=== PATIENT | female | born 1985 | race Two or more races ===

== ENCOUNTER 2023-09-11 17:48 | Emergency (ER) | payer MEDICAID, OTHER, SELFPAY ==
--- NOTE | ~2023-09-11 | CT_ITS ---
EXAMINATION: CT ABDOMEN AND PELVIS WITH CONTRAST CLINICAL INFORMATION: Right lower quadrant pain; urinary symptoms. COMPARISON: None available. TECHNIQUE: Multidetector volumetric images were obtained from the superior aspect of the liver through the pubic symphysis following administration 85 mL of Omnipaque 350 intravenous contrast. Sagittal and coronal reformatted images were obtained on the technologist's workstation. Oral contrast: No This CT examination was performed using dose optimization techniques as appropriate, variously including the following: *Automated exposure control *Adjustment of mA and/or kV according to patient size (this includes techniques or standardized protocols for targeted exams where dose is matched to indication/reason for exam; i.e. extremities or head) *Use of iterative reconstruction technique DLP: 471 mGy-cm FINDINGS: LUNG BASES: The visualized lung bases are unremarkable. There is bibasilar dependent hypoaeration. LIVER, GALLBLADDER, AND BILIARY TREE: The liver is normal in size, shape and generally diminished in attenuation. No focal hepatic lesion or biliary ductal dilatation is present. The gallbladder is unremarkable with no evidence of radiopaque gallstones, gallbladder wall thickening, or obvious pericholecystic inflammatory changes. PANCREAS: Unremarkable. SPLEEN: Unremarkable. ADRENAL GLANDS: Unremarkable. KIDNEYS AND URETERS: The kidneys are normal in size, shape, and attenuation. No hydronephrosis, hydroureter, or calculi seen. No perinephric stranding. BLADDER: Unremarkable. GASTROINTESTINAL TRACT: The small and large bowel are unremarkable. The appendix is unremarkable. ABDOMINAL WALL: No significant hernia is appreciated. LYMPH NODES: There are a few shotty, nonpathologically enlarged periappendiceal lymph nodes. There is no sizable lymphadenopathy. VASCULAR: Unremarkable. PELVIC VISCERA: Nabothian cysts are seen within the cervix. Endometrial stripe thickness is upper normal at approximately 1.5 cm (8:47). The left ovary contains a 2.2 cm benign, simple cyst. OSSEOUS STRUCTURES: There is a marked T9 anterior wedge compression fracture, with slight gibbus deformity. There is anterior plate arthropathy at T8-T9 and T9-T10. No aggressive osseous lesion is seen. CT/CT abdomen pelvis w IV con IMPRESSION: 1. No urinary mass, calculus or obstruction is seen. 2. There is no bowel obstruction, free intraperitoneal air or abscess. No appendicitis or diverticulitis is seen. 3. Nabothian cysts are seen within the cervix. Endovaginal stripe thickness is upper normal and can be more fully evaluated with dedicated pelvic ultrasound, if clinically warranted. 4. There is a marked T9 anterior wedge compression fracture. Fleischner guidelines were followed.
[2023-09-11 18:06] VITALS: BP 115/69; PULSE 79; RESP 18; TEMP 36.5; O2SAT 97; BMI 30.1
--- NOTE | 2023-09-11 18:11 | ED.GENADULT ---
HPI - General Adult General Chief complaint: Vaginal Bleeding Stated complaint: bleeding when using the bathroom Time Seen by Provider: 09/11/23 21:26 History of Present Illness ED Provider: Jelani MILLER narrative: The patient is a 37-year-old female who says that she has had left lower abdominal or pelvic pain for about 5 or 6 days. She says that the pain seems to wrap around to her lower flank on the left or her waist on the left. She has also had urinary discomfort and urinary frequency. Yesterday she also had vaginal bleeding although this stopped today. She says she has a normal. About a week ago. She has a history of a tubal ligation. The patient says she has been taking ibuprofen for pain. Related Data Previous Rx's ?Medication ?Instructions ?Recorded cefuroxime axetil 250 mg tablet 250 mg PO BID #10 tabs 09/12/23 ibuprofen 600 mg tablet 600 mg PO Q6H PRN pain #14 tabs 09/12/23 Allergies Allergy/AdvReac Type Severity Reaction Status Date / Time No Known Allergies Allergy Verified 09/11/23 18:08 Review of Systems Review of Systems: Yes all other systems are reviewed and are negative [facility] Social History Social History Advance Directives: No Advance Directives Information Provided: No Do you have a plan to hurt others: No Plan Patient : No Physical Exam ED Vital Signs: Vital Signs - 24 hr 09/11/23 18:06 09/11/23 20:26 09/12/23 00:15 Temperature 97.7 F 98.0 F 97.6 F Pulse Rate 79 67 65 Respiratory Rate 18 16 16 Blood Pressure 115/69 113/59 L 104/60 Pulse Oximetry 97 99 99 Oxygen Delivery Method Room Air Room Air Room Air 09/12/23 00:39 Temperature 97.6 F Pulse Rate 65 Respiratory Rate 16 Blood Pressure 104/60 Pulse Oximetry 99 Oxygen Delivery Method Room Air BMI result Body Mass Index 30.1 Const Other: The patient is awake and alert. She is pleasant and cooperative. She does not appear in obvious overt distress. HENMT Other: Face is symmetrical. Mucous membranes moist. Eyes Other: Pupils are round equal, conjunctivae clear Neck Other: Moving her neck easily Resp Effort & Inspection: normal respiratory effort Auscultation: clear to auscultation bilaterally Cardio Rate: regular rate Rhythm: regular rhythm Heart sounds: S1 normal heart sound present and S2 normal heart sound present GI Other: There is some left lower quadrant tenderness without definite rebound or guarding. The abdomen is otherwise soft and nontender. Back/Spine/Pelvis Other: No marked left-sided CVA percussion tenderness. Skin Other: The skin is dry and unremarkable Neuro Other: The patient is awake and alert with a normal mental status. Cranial nerves are grossly intact. She moves her extremities normally and seems grossly neurologically intact. Extrem Other: No peripheral edema. Course Course Course Narrative: RME performed by Michelle Perez PA-C. Patient is a 37 year old assigned female at presenting to the emergency department with vaginal bleeding. Detailed physical exam and review of systems are deferred to the claim clinician. Labs ordered. Patient placed back in the waiting room pending room availability and results. Medications Administered Discontinued Medications Generic Name Dose Route Start Last Admin Trade Name Freq PRN Reason Stop Dose Admin Cefuroxime Axetil 500 mg 09/12/23 00:04 09/12/23 00:34 Cefuroxime Axetil 500 Mg Tablet PO 09/12/23 00:05 500 mg ONCE ONE Administration Sodium Chloride 1,000 mls @ 999 mls/hr 09/11/23 21:45 09/11/23 23:10 Ns IV 09/11/23 22:45 Infused .Q1H1M DANIEL Infusion Iohexol 85 ml 09/11/23 22:15 09/11/23 22:15 Iohexol 350 Mg/Ml 100 Ml Infus..Btl IV 09/11/23 22:16 85 ml ONCE ONE Administration Ketorolac Tromethamine 15 mg 09/11/23 21:43 09/11/23 21:59 Ketorolac Tromethamine 15 Mg/Ml Vial IVPUSH 09/11/23 21:44 15 mg ONCE ONE Administration Medical Decision Making Medical Decision Making MDM Narrative: The patient is a 37-year-old female who presents with a complaint of several days of left lower quadrant or pelvic abdominal pain that she says she also feels somewhat in her lower back near her waist. She also reports urinary discomfort and frequency. She also says that yesterday she had vaginal bleeding that was not her typical menstrual bleeding. She had had a regular period the week before. The patient says that the abnormal vaginal bleeding stopped on its own and she is not having any current I have ongoing bleeding. Clinically the patient does not look particularly uncomfortable. She certainly does not seem to be in agony. Patient's urinalysis is consistent with a urinary tract infection although she does have significant blood on her urinalysis.. Other labs are unremarkable. A CT scan of the abdomen pelvis with IV contrast was done to look for the possibility of pyelonephritis or a significant ovarian problem. There was no evidence of a kidney stone on the CT scan. There is a 2 cm simple ovarian cyst. There is no description of anything to suggest torsion on the CT scan. Ultimately I felt the patient should be treated for UTI but did not feel there was any definite indication for additional testing or management in the emergency room. The patient goes to the [facility] in [place] associated with the [facility] for primary care. She had a tubal ligation through [facility] Gynecology several years ago. She says that she would prefer to follow up with Gynecology here at [facility]. She was given the name and number for Dr. Del Castillo. Lab Data 09/11/23 18:20 09/11/23 18:20 Labs: Lab Results 09/11/23 09/11/23 Range/Units 18:20 18:23 WBC 9.1 (4.8-10.8) X10*3/uL RBC 4.25 (4.20-5.50) X10*6/uL Hgb 13.2 (12.0-16.0) g/dl Hct 37.2 (37.0-47.0) % MCV 87.5 (80.0-98.0) fL MCH 31.1 (27.0-33.0) pg MCHC 35.5 H (31.0-35.0) g/dl RDW 12.0 (11.0-16.0) % Plt Count 279 (160-400) X10*3/uL MPV 9.9 (9.4-12.3) fL Immature Gran % (Auto) 0.5 H (0.0-0.4) % Neut % (Auto) 57.3 (45-73) % Lymph % (Auto) 31.9 (20-40) % [place] % (Auto) 7.1 (2-11) % Eos % (Auto) 2.2 (0-4) % Baso % (Auto) 1.0 (0-2) % Lymph # (Auto) 2.9 (1.2-4.9) X10*3/uL [place] # (Auto) 0.7 (0.1-1.2) X10*3/uL Eos # (Auto) 0.2 (0.0-0.4) X10*3/uL Baso # (Auto) 0.1 (0.0-0.2) X10*3/uL Abs Immat Gran (auto) 0.05 H (0.00-0.03) X10*3/uL Absolute Neuts (auto) 5.2 (2.0-8.3) x10*3/uL Absolute Nucleated RBC 0.000 (0.0-0.012) X10*3/uL Nucleated RBC % (auto) 0.0 (0.0-0.2) /100WBC Sodium 139 (135-145) mmol/L Potassium 3.3 (3.3-5.1) mmol/L Chloride 106 (96-108) mmol/L Carbon Dioxide 23 (22-29) mmol/L Anion Gap 13 (12-20) BUN 12 (9-16) mg/dL Creatinine 0.87 (0.5-1.4) mg/dL Estim Creat Clear Calc 67.6 Estimated GFR > 60 Random Glucose 135 H (60-115) mg/dL Calcium 9.4 (8.4-10.2) mg/dL Magnesium 2.2 (1.6-2.6) mg/dL Total Bilirubin 0.4 (0.0-1.0) mg/dL AST 27 (5-31) U/L ALT 35 H (0-31) U/L Alkaline Phosphatase 71 (39-117) U/L C-Reactive Protein 0.55 H (< or = 0.50) mg/dL Total Protein 7.3 (6.5-8.0) g/dL Albumin 4.0 (3.5-5.0) g/dL Urine Color Yellow Urine Appearance Clear Urine pH 5.5 (5.0-9.0) Ur Specific [place] 1.020 (1.005-1.025) Urine Protein Negative (Neg-Trace) mg/dL Urine Glucose (UA) Negative (Negative) mg/dL Urine Ketones Trace (Negative) mg/dL Urine Blood Large (3+) H (Negative) Urine Nitrite Negative (Negative) Ur Leukocyte Esterase Small (1+) H (Negative) Urine RBC >20 H (0-2) /HPF Urine WBC 11-20 H (0-5) /HPF Ur Squamous Epith Cells 6-10 (0-2) /HPF Urine Bacteria None Seen (None Seen) Hyaline Casts 0-2 (0-2) /LPF Urine Test NEGATIVE (NEGATIVE) Discharge Plan Discharge Clinical Impression: Urinary tract infection, Vaginal bleeding, Left lower quadrant abdominal pain, Left ovarian cyst Patient Disposition: Home, Self-Care Additional Instructions: I believe you have a urine infection. You have been started on an antibiotic, cefuroxime. Please take this antibiotic 2 times a day until done. I think that you should see a chief payroll clerk to discuss your vaginal bleeding and your concerns about your previous tubal ligation. Please contact Dr. Del Castillo's office on Wednesday. Please also plan on following up with your regular doctor at the [facility] in [place]. You may use ibuprofen and acetaminophen as needed for discomfort. A prescription for ibuprofen was also sent to your pharmacy. Return to the emergency room if significantly worse. Prescriptions: New cefuroxime axetil 250 mg tablet 250 mg PO BID Qty: 10 0RF ibuprofen 600 mg tablet 600 mg PO Q6H PRN (Reason: pain) Qty: 14 0RF Referrals: [facility] [Provider Group] (UTI, vaginal bleeding) Del Del Castillo MD [Physician] - (vaginal bleeding, left ovarian cyst, UTI) Interventions: ED Discharge Assessment Last Done: 09/12/23 00:39 Discharge Date/Time: 09/12/23 00:40 Print Language: Sao Tomean
[2023-09-11 18:24] LABS: Basophils Absolute Auto 0.1 X10*3/uL (0.0-0.2); Eosinophils Absolute Auto 0.2 X10*3/uL (0.0-0.4); Eosinophils Percent Auto 2.2 % (0-4); Hematocrit 37.2 % (37.0-47.0); Hemoglobin 13.2 g/dl (12.0-16.0); Imm Gran Abs Auto 0.05 X10*3/uL (0.00-0.03); Imm Gran Pct Auto 0.5 % (0.0-0.4); Lymphocytes Absolute Auto 2.9 X10*3/uL (1.2-4.9); Lymphocytes Percent Auto 31.9 % (20-40); MANUAL DIFF FLAG NO; Mean Corpuscular HGB Conc 35.5 g/dl (31.0-35.0); Mean Corpuscular Hemoglobin 31.1 pg (27.0-33.0); Mean Corpuscular Volume 87.5 fL (80.0-98.0); Mean Platelet Volume 9.9 fL (9.4-12.3); Monocytes Absolute Auto 0.7 X10*3/uL (0.1-1.2); Monocytes Percent Auto 7.1 % (2-11); Neutrophils Absolute Auto 5.2 x10*3/uL (2.0-8.3); Neutrophils Percent Auto 57.3 % (45-73); Platelet Count 279 X10*3/uL (160-400); Red Blood Count 4.25 X10*6/uL (4.20-5.50); White Blood Count 9.1 X10*3/uL (4.8-10.8)
[2023-09-11 18:34] LABS: Appearance Urine Clear; Color Urine Yellow; Glucose Urine UA Negative (Negative); Leukocyte Esterase Urine Small (1+) (Negative); Nitrite Urine Negative (Negative); PH 5.5 (5.0-9.0); UMIC TRIGGER UACC YES; Urine Blood Large (3+) (Negative); Urine Ketones Trace mg/dL (Negative); Urine Protein Negative (Neg-Trace)
[2023-09-11 18:37] LABS: Alanine Aminotransferase 35 U/L (0-31); Alkaline Phosphatase 71 U/L (39-117); Anion Gap 13 (12-20); Aspartate Amino Transferase 27 U/L (5-31); Bilirubin Total 0.4 mg/dL (0.0-1.0); Blood Urea Nitrogen 12 mg/dL (9-16); Calcium 9.4 mg/dL (8.4-10.2); Carbon Dioxide 23 mmol/L (22-29); Chloride 106 mmol/L (96-108); Creatinine Clr Calc Pharmacy 67.6; Estimated Glomerular Filt Rate > 60; Glucose Random 135 mg/dL (60-115); Magnesium 2.2 mg/dL (1.6-2.6); Potassium 3.3 mmol/L (3.3-5.1); Sodium 139 mmol/L (135-145); Total Protein 7.3 g/dL (6.5-8.0)
[2023-09-11 18:39] LABS: Bacteria Urine None Seen (None Seen); Hyaline Casts Urine 0-2 /LPF (0-2); RBC Urine >20 /HPF (0-2); UACC Culture Trigger YES
--- OUTSIDE RECORDS SUMMARY | 2023-09-11 20:17 | XMS_ITS | Continuity of Care Document ---
Author Organization [facility] Address [address] [place] [address]- Care Team Providers Care Spindle Carver Name Role Phone Josette KYLE, Sophie Primary Care Physician [facility] [id number] Date(s): 11/13/22 - 12/13/22 [facility]/[place] [address]- Attending Physician: Ray Sawant Admitting Physician: AdmtrRay Referring Physician: Admtr, Ar8 Allergies, Adverse Reactions, Alerts No Known Allergies Immunizations Given and Recorded Vaccine Date Status Refusal Reason influenza virus vaccine, inactivated 11/15/19 Give n influenza virus vaccine, inactivated 12/13/18 Give n influenza virus vaccine, inactivated 11/19/17 Give n influenza virus vaccine, inactivated 12/23/16 Give n influenza virus vaccine, inactivated 04/16/15 Give n hepatitis B adult vaccine 03/17/18 Given hepatitis B adult vaccine 08/25/16 Given hepatitis B adult vaccine 05/14/15 Given tetanus/diphtheria/pertussis, acel(Tdap) 11/19/17 Given tetanus/diphtheria/pertussis, acel(Tdap) 04/16/15 Given Medications clotrimazole 1% topical cream 1 application, Topically, 2 times a day, in nauruan please continue for at least two weeks after the rash resolves, # 60 Gm, 2 Refills, Maintenance, 05/22/22 15:38:00 EDT, Cream, [facility], Partial fill upon patient request if t... Start Date: 05/22/22 Status: Ordered fluconazole 150 mg oral tablet 1 tablet = 150 mg, By Mouth, Once, For vaginal discharge and itching May repeat in 72 hrs if symptoms not resolved Azerbaijani, # 2 tablet, 0 Refills, Soft Stop, 09/11/21 16:06:00 EDT, Tablet, [facility], Partial fill upon patient r... Start Date: 09/11/21 Status: Ordered fluconazole 150 mg oral tablet 1 tablet = 150 mg, By Mouth, Once, # 1 tablet, 0 Refills, Soft Stop, 03/18/18 10:53:56 EST, Tablet,please label in nauruan Start Date: 03/18/18 Status: Ordered ibuprofen 600 mg oral tablet 600 mg, 1, tablet, By Mouth, 3 times a day, PRN, with food, # 30 tablet, Refills 0, Tot. Refills 0,Maintenance, back pain, 06/04/22 17:05:00 EDT, Route to Pharmacy Electronically, [facility], please print rx in nauruan, 150, cm, 0... Start Date: 06/04/22 Status: Ordered Multivitamins with Folic Acid 1 mg oral tablet 1 tablet, By Mouth, Daily, # 30 tablet, 11 Refills, Maintenance, 05/12/17 16:29:17 EDT, Tablet, 1 tablet By Mouth Daily Start Date: 05/12/17 Status: Ordered Multivitamins with Vitamin B Complex, Vitamin C, Minerals and L- Methylfolate oral capsule 1 capsule, By Mouth, Daily, SIG MALTESE, # 30 capsule, 3 Refills, Maintenance, 12/03/17 13:14:17 EDT, Capsule, 1 capsule By Mouth Daily,Instr:SIG MALTESE Start Date: 12/03/17 Status: Ordered Zoloft 50 mg oral tablet 1 tablet = 50 mg, By Mouth, Daily, la primera semana-jorge media tableta x 7 d., # 30 tablet, 4 Refills, Maintenance, 01/05/18 17:11:53 EST, Tablet, pls translate-half tablet/d x 7 d, then full tablet9(cut 4 tabs in half if possible) Start Date: 01/05/18 Stop Date: 06/04/18 Status: Ordered Problem List Condition Confirmation Course Effective Dates Status Health St atus Informant Delivery of third by section using transverse incision of lower segment of uterus Confirmed 12/23/17 Active History of bilateral tubal ligation Confirmed 12/23/17 Active History of section x 2 in [facility] Confirmed Active Azerbaijani speaking patient Confirmed Active Social History Social History Type Response Smoking Status Never (less than 100 in lifetime); Tobacco user in household: No entered on: 06/04/22 Sex Patient Care team information Care Team Personnel Name: Sophie Finch NP Position: [facility] PCO Associate Professional Member Role: PCP Address: Address: [address] [place] [address]- Care Team Related Persons Name: CÉSAR RUGGIERO Address: [address] Address: home [address] [place] [address] Name: KIRILL DALEY Address: home [address] [place] [address] Name: ANTHONY DALEY Address: [place] [address] Name: CRISTOPHER DALEY Address: [place] [address]
--- OUTSIDE RECORDS SUMMARY | 2023-09-11 20:17 | XMS_ITS | Continuity of Care Document ---
Author Organization [facility] Address [address] [place] [address]- Care Team Providers Care Manual Lathe Machinist Name Role Phone Glen LU, Simin Caraballo Primary Care Physician Encounter [facility] Date(s): 11/15/19 - 12/15/19 [facility]/[address] [address]- Attending Physician: AdmtrRay Admitting Physician: Admtr, Ar8 Referring Physician: Admtr, Ar8 Allergies, Adverse Reactions, Alerts Substance Reaction Severity Status NKA Active Immunizations Given and Recorded Vaccine Date Status [...] 11/19/17 Given tetanus/diphtheria/pertussis, acel(Tdap) 04/16/15 Given Medications fluconazole 150 mg oral tablet 1 tablet = 150 mg, By Mouth, Once, # 1 tablet, 0 Refills, Soft Stop, 03/18/18 10:53:56 EST, Tablet,please label in east timorese Start Date: 03/18/18 Status: Ordered ibuprofen 600 mg oral tablet 600 mg, 1, tablet, By Mouth, Every 6 hours, # 60 tablet, Refills 0, Tot. Refills 0, Maintenance, 12/23/17 17:53:29 EST, Print Requisition, please print rx in east timorese Start Date: 12/23/17 Status: Ordered Multivitamins with Folic Acid 1 mg oral tablet 1 tablet, By Mouth, Daily, # 30 tablet, 11 Refills, Maintenance, 05/12/17 16:29:17 EDT, Tablet, 1 tablet By Mouth Daily Start Date: 05/12/17 Status: Ordered Multivitamins with Vitamin B Complex, Vitamin C, Minerals and L- Methylfolate oral capsule 1 capsule, By Mouth, Daily, SIG ESTONIAN, # 30 capsule, 3 Refills, Maintenance, 12/03/17 13:14:17 EDT, Capsule, 1 capsule By Mouth Daily,Instr:SIG ESTONIAN Start Date: 12/03/17 Status: Ordered Zoloft 50 mg oral tablet 1 tablet = 50 mg, By Mouth, Daily, la primera semana-jorge media tableta x 7 d., # 30 tablet, 4 Refills, Maintenance, 01/05/18 17:11:53 EST, Tablet, pls translate-half tablet/d x 7 d, then full tablet9(cut 4 tabs in half if possible) Start Date: 01/05/18 Stop Date: 06/04/18 Status: Ordered Problem List Condition Effective Dates Status Health Status Inform ant Delivery of third by section using transverse incision of lower segment of uterus(Confirmed) 12/23/17 Active History of bilateral tubal ligation(Confirmed) 12/23/17 Active History of section x 2 in [facility](Confirmed) Active Sammarinese speaking patient(Confirmed) Active Social History Social History Type Response Smoking Status Never smoker entered on: 08/25/16 Sex
--- OUTSIDE RECORDS SUMMARY | 2023-09-11 20:17 | XMS_ITS | Continuity of Care Document ---
Author Organization [facility] Address Unknown Care Team Providers Care Shoe Packer Name Role Phone Sophie Finch NP Primary Care Physician Encounter [facility] Date(s): 08/25/21 - 09/24/21 [facility] Attending Physician: Ray Sawant Admitting Physician: Ray Sawant Referring Physician: Ray Sawant Allergies, Adverse Reactions, Alerts No Known Allergies [...] in 72 hrs if symptoms not resolved Iranian, # 2 tablet, 0 Refills, Soft Stop, 09/11/21 16:06:00 EDT, Tablet, [facility], Partial fill upon patient r... Start Date: 09/11/21 Status: Ordered fluconazole 150 mg oral tablet 1 tablet = 150 mg, By Mouth, Once, # 1 tablet, 0 Refills, Soft Stop, 03/18/18 10:53:56 EST, Tablet,please label in yoruba Start Date: 03/18/18 Status: Ordered ibuprofen 600 mg oral tablet 600 mg, 1, tablet, By Mouth, Every 6 hours, # 60 tablet, Refills 0, Tot. Refills 0, Maintenance, 12/23/17 17:53:29 EST, Print Requisition, please print rx in yoruba Start Date: 12/23/17 Status: Ordered Multivitamins with Folic Acid 1 mg oral tablet 1 tablet, By Mouth, Daily, # 30 tablet, 11 Refills, Maintenance, 05/12/17 16:29:17 EDT, Tablet, 1 tablet By Mouth Daily Start Date: 05/12/17 Status: Ordered Multivitamins with Vitamin B Complex, Vitamin C, Minerals and L- Methylfolate oral capsule 1 capsule, By Mouth, Daily, SIG CROATIAN, # 30 capsule, 3 Refills, Maintenance, 12/03/17 13:14:17 EDT, Capsule, 1 capsule By Mouth Daily,Instr:SIG CROATIAN Start Date: 12/03/17 Status: Ordered Zoloft 50 [...] Active History of section x 2 in [facility](Confirmed) Active Iranian speaking patient(Confirmed) Active Social History Social History Type Response Tobacco Use: 4 or less cigar ettes(less than 1/4 pack)/day in last 30 days. Tobacco user in household: No. Sex
--- OUTSIDE RECORDS SUMMARY | 2023-09-11 20:18 | XMS_ITS | Continuity of Care Document ---
Author Organization [facility] Address [address] [place] [address]- Care Team Providers Care Systems Eng Name Role Phone Josette KYLE, Sophie Primary Care Physician [phone] Encounter [facility] Date(s): 09/11/21 - 10/11/21 [facility]/[place] [address]- [place] Allergies, Adverse Reactions, Alerts No Known Allergies [...] in 72 hrs if symptoms not resolved Romanian, # 2 tablet, 0 Refills, Soft Stop, 09/11/21 16:06:00 EDT, Tablet, [facility], Partial fill upon patient r... Start Date: 09/11/21 Status: Ordered fluconazole 150 mg oral tablet 1 tablet = 150 mg, By Mouth, Once, # 1 tablet, 0 Refills, Soft Stop, 03/18/18 10:53:56 EST, Tablet,please label in mongolian Start Date: 03/18/18 Status: Ordered ibuprofen 600 mg oral tablet 600 mg, 1, tablet, By Mouth, Every 6 hours, # 60 tablet, Refills 0, Tot. Refills 0, Maintenance, 12/23/17 17:53:29 EST, Print Requisition, please print rx in mongolian Start Date: 12/23/17 Status: Ordered Multivitamins with Folic Acid 1 mg oral tablet 1 tablet, By Mouth, Daily, # 30 tablet, 11 Refills, Maintenance, 05/12/17 16:29:17 EDT, Tablet, 1 tablet By Mouth Daily Start Date: 05/12/17 Status: Ordered Multivitamins with Vitamin B Complex, Vitamin C, Minerals and L- Methylfolate oral capsule 1 capsule, By Mouth, Daily, SIG GREENLANDIC, # 30 capsule, 3 Refills, Maintenance, 12/03/17 13:14:17 EDT, Capsule, 1 capsule By Mouth Daily,Instr:SIG GREENLANDIC Start Date: 12/03/17 Status: Ordered Zoloft 50 [...] Active History of section x 2 in [facility](Confirmed) Active Romanian speaking patient(Confirmed) Active Social History Social History Type Response Tobacco Use: 4 or less cigar ettes(less than 1/4 pack)/day in last 30 days. Tobacco user in household: No. Sex Care Team Personnel Name: Sophie Finch NP Address: [address] [place] [address]
--- OUTSIDE RECORDS SUMMARY | 2023-09-11 20:18 | XMS_ITS | Continuity of Care Document ---
Author Organization [facility] Address [address] [place] [address]- Care Team Providers Care Kettle Chipper Name Role Phone Sophie Finch NP Primary Care Physician [phone] Encounter [facility] Date(s): 02/10/23 - 03/12/23 [facility]/[place] [address]- Attending Physician: Ray Sawant Admitting Physician: Ray Sawant Referring Physician: AdmtrRay Allergies, Adverse Reactions, Alerts No Known Allergies [...] application, Topically, 2 times a day, in scottish please continue for at least two weeks after the rash resolves, # 60 Gm, 2 Refills, Maintenance, 05/22/22 15:38:00 EDT, Cream, [facility], Partial fill upon patient request if t... Start Date: 05/22/22 Status: Ordered fluconazole 150 mg oral tablet 1 tablet = 150 mg, By Mouth, Once, For vaginal discharge and itching May repeat in 72 hrs if symptoms not resolved Tristanian, # 2 tablet, 0 Refills, Soft Stop, 09/11/21 16:06:00 EDT, Tablet, [facility], Partial fill upon patient r... Start Date: 09/11/21 Status: Ordered fluconazole 150 mg oral tablet 1 tablet = 150 mg, By Mouth, Once, # 1 tablet, 0 Refills, Soft Stop, 03/18/18 10:53:56 EST, Tablet,please label in scottish Start Date: 03/18/18 Status: Ordered ibuprofen 600 mg oral tablet 600 mg, 1, tablet, By Mouth, 3 times a day, PRN, with food, # 30 tablet, Refills 0, Tot. Refills 0,Maintenance, back pain, 06/04/22 17:05:00 EDT, Route to Pharmacy Electronically, [facility], please print rx in scottish, 150, cm, 0... Start Date: 06/04/22 Status: Ordered Multivitamins with Folic Acid 1 mg oral tablet 1 tablet, By Mouth, Daily, # 30 tablet, 11 Refills, Maintenance, 05/12/17 16:29:17 EDT, Tablet, 1 tablet By Mouth Daily Start Date: 05/12/17 Status: Ordered Multivitamins with Vitamin B Complex, Vitamin C, Minerals and L- Methylfolate oral capsule 1 capsule, By Mouth, Daily, SIG SWAZI, # 30 capsule, 3 Refills, Maintenance, 12/03/17 13:14:17 EDT, Capsule, 1 capsule By Mouth Daily,Instr:SIG SWAZI Start Date: 12/03/17 Status: Ordered Zoloft 50 [...] x 2 in [facility] Confirmed Active Tristanian speaking patient Confirmed Active Social History Social History Type Response Smoking Status Never (less than 100 in lifetime); Tobacco user in household: No entered on: 06/04/22 Sex Patient Care team information Care Team Personnel Name: Sophie Finch NP Position: [facility] PCO Associate Professional Member Role: PCP Address: Address: [address] [place] [address]- Care Team Related Persons Name: CÉSAR RUGGIERO Address: Address: [address] Name: KIRILL DALEY Address: home [address] [place] [address] Name: ANTHONY DALEY Address: home [address] [place] [address] Name: CRISTOPHER DALEY Address: home [address] [place] [address]
--- OUTSIDE RECORDS SUMMARY | 2023-09-11 20:18 | XMS_ITS | Continuity of Care Document ---
Author Organization [facility] Address [address] [place] [address]- Care Team Providers Care Special Education Educational Assistant Name Role Phone Josette KYLE, Sophie Primary Care Physician [phone] [facility] [id number] Date(s): 06/04/22 - 07/04/22 [facility] [address]- Attending Physician: Ray Sawant Admitting Physician: AdmRay wyatt Referring Physician: AdmtrRay Allergies, Adverse Reactions, Alerts [...] application, Topically, 2 times a day, in indian please continue for at least two weeks after the rash resolves, # 60 Gm, 2 Refills, Maintenance, 05/22/22 15:38:00 EDT, Cream, [facility], Partial fill upon patient request if t... Start Date: 05/22/22 Status: Ordered fluconazole 150 mg oral tablet 1 tablet = 150 mg, By Mouth, Once, For vaginal discharge and itching May repeat in 72 hrs if symptoms not resolved Dutch, # 2 tablet, 0 Refills, Soft Stop, 09/11/21 16:06:00 EDT, Tablet, [facility], Partial fill upon patient r... Start Date: 09/11/21 Status: Ordered fluconazole 150 mg oral tablet 1 tablet = 150 mg, By Mouth, Once, # 1 tablet, 0 Refills, Soft Stop, 03/18/18 10:53:56 EST, Tablet,please label in indian Start Date: 03/18/18 Status: Ordered ibuprofen 600 mg oral tablet 600 mg, 1, tablet, By Mouth, 3 times a day, PRN, with food, # 30 tablet, Refills 0, Tot. Refills 0,Maintenance, back pain, 06/04/22 17:05:00 EDT, Route to Pharmacy Electronically, [facility], please print rx in indian, 150, cm, 0... Start Date: 06/04/22 Status: Ordered Multivitamins with Folic Acid 1 mg oral tablet 1 tablet, By Mouth, Daily, # 30 tablet, 11 Refills, Maintenance, 05/12/17 16:29:17 EDT, Tablet, 1 tablet By Mouth Daily Start Date: 05/12/17 Status: Ordered Multivitamins with Vitamin B Complex, Vitamin C, Minerals and L- Methylfolate oral capsule 1 capsule, By Mouth, Daily, SIG HONDURAN, # 30 capsule, 3 Refills, Maintenance, 12/03/17 13:14:17 EDT, Capsule, 1 capsule By Mouth Daily,Instr:SIG HONDURAN Start Date: 12/03/17 Status: Ordered Zoloft 50 [...] Active History of section x 2 in [facility] Confirmed Active Dutch speaking patient Confirmed Active Social History Social History Type Response Smoking Status Never (less than 100 in lifetime); Tobacco user in household: No entered on: 06/04/22 Sex Patient Care team information Care Team Personnel Name: Sophie Finch NP Position: S PCO Associate Professional Member Role: PCP Address: Address: [address] [place] [address]- Care Team Related Persons Name: CÉSAR RUGGIERO Address: Address: home [address] [place] [address] Name: KIRILL DALEY Address: home [address] [place] [address] Name: ANTHONY DALEY Address: home [address] [place] [address] Name: CRISTOPHER DALEY Address: [place] [address]
--- OUTSIDE RECORDS SUMMARY | 2023-09-11 20:18 | XMS_ITS | Continuity of Care Document ---
Author Organization [facility] Address Unknown Care Team Providers Care Agent Broker Name Role Phone Glen LU, Simin Caraballo Primary Care Physician Encounter [facility] Date(s): 10/01/20 - 10/31/20 [facility] Attending Physician: Ray Sawant Admitting Physician: Ray Sawant Referring Physician: Ray Sawant Allergies, Adverse Reactions, Alerts Substance Reaction Severity [...] Stop, 03/18/18 10:53:56 EST, Tablet,please label in belgian Start Date: 03/18/18 Status: Ordered ibuprofen 600 mg oral tablet 600 mg, 1, tablet, By Mouth, Every 6 hours, # 60 tablet, Refills 0, Tot. Refills 0, Maintenance, 12/23/17 17:53:29 EST, Print Requisition, please print rx in belgian Start Date: 12/23/17 Status: Ordered Multivitamins with Folic Acid 1 mg oral tablet 1 tablet, By Mouth, Daily, # 30 tablet, 11 Refills, Maintenance, 05/12/17 16:29:17 EDT, Tablet, 1 tablet By Mouth Daily Start Date: 05/12/17 Status: Ordered Multivitamins with Vitamin B Complex, Vitamin C, Minerals and L- Methylfolate oral capsule 1 capsule, By Mouth, Daily, SIG NIUEAN, # 30 capsule, 3 Refills, Maintenance, 12/03/17 13:14:17 EDT, Capsule, 1 capsule By Mouth Daily,Instr:SIG NIUEAN Start Date: 12/03/17 Status: Ordered Zoloft 50 [...] Active History of section x 2 in [facility](Confirmed) Active Wolof speaking patient(Confirmed) Active Social History Social History Type Response Smoking Status Never smoker entered on: 08/25/16 Sex
--- OUTSIDE RECORDS SUMMARY | 2023-09-11 20:18 | XMS_ITS | Continuity of Care Document ---
Author Organization [facility] Address Unknown Care Team Providers Care Traffic Manager Name Role Phone Simin Carroll MD Primary Care Physician [place] [facility] Date(s): 04/11/21 - 05/11/21 [facility] Attending Physician: Ray Sawant Admitting Physician: [...] Stop, 03/18/18 10:53:56 EST, Tablet,please label in faroese Start Date: 03/18/18 Status: Ordered ibuprofen 600 mg oral tablet 600 mg, 1, tablet, By Mouth, Every 6 hours, # 60 tablet, Refills 0, Tot. Refills 0, Maintenance, 12/23/17 17:53:29 EST, Print Requisition, please print rx in faroese Start Date: 12/23/17 Status: Ordered Multivitamins with Folic Acid 1 mg oral tablet 1 tablet, By Mouth, Daily, # 30 tablet, 11 Refills, Maintenance, 05/12/17 16:29:17 EDT, Tablet, 1 tablet By Mouth Daily Start Date: 05/12/17 Status: Ordered Multivitamins with Vitamin B Complex, Vitamin C, Minerals and L- Methylfolate oral capsule 1 capsule, By Mouth, Daily, SIG ANGOLAN, # 30 capsule, 3 Refills, Maintenance, 12/03/17 13:14:17 EDT, Capsule, 1 capsule By Mouth Daily,Instr:SIG ANGOLAN Start Date: 12/03/17 Status: Ordered Zoloft 50 [...] Active History of section x 2 in [facility](Confirmed) Active Kenyan speaking patient(Confirmed) Active Social History Social History Type Response Tobacco Use: 4 or less cigar ettes(less than 1/4 pack)/day in last 30 days. Tobacco user in household: No. Sex
--- OUTSIDE RECORDS SUMMARY | 2023-09-11 20:18 | XMS_ITS | Continuity of Care Document ---
Author Organization [facility] Address [address] [place] [address]- Care Team Providers Care Soldering Machine Tender Name Role Phone Glen LU, Simin Caraballo Primary Care Physician Encounter [facility] Date(s): 08/18/19 - 09/17/19 [facility]/[address] [address]- [facility] Attending Physician: Ray Sawant Admitting Physician: AdmRay wyatt Referring Physician: AdmtrRay Allergies, Adverse Reactions, Alerts Substance Reaction Severity Status NKA Active Immunizations Given and Recorded Vaccine Date Status Refusal Reason influenza virus vaccine, inactivated 12/13/18 Give n [...] Stop, 03/18/18 10:53:56 EST, Tablet,please label in welsh Start Date: 03/18/18 Status: Ordered ibuprofen 600 mg oral tablet 600 mg, 1, tablet, By Mouth, Every 6 hours, # 60 tablet, Refills 0, Tot. Refills 0, Maintenance, 12/23/17 17:53:29 EST, Print Requisition, please print rx in welsh Start Date: 12/23/17 Status: Ordered Multivitamins with Folic Acid 1 mg oral tablet 1 tablet, By Mouth, Daily, # 30 tablet, 11 Refills, Maintenance, 05/12/17 16:29:17 EDT, Tablet, 1 tablet By Mouth Daily Start Date: 05/12/17 Status: Ordered Multivitamins with Vitamin B Complex, Vitamin C, Minerals and L- Methylfolate oral capsule 1 capsule, By Mouth, Daily, SIG PORTUGUESE, # 30 capsule, 3 Refills, Maintenance, 12/03/17 13:14:17 EDT, Capsule, 1 capsule By Mouth Daily,Instr:SIG PORTUGUESE Start Date: 12/03/17 Status: Ordered Zoloft 50 mg oral tablet 1 tablet = 50 mg, By Mouth, Daily, la primera semana-joreg media tableta x 7 d., # 30 [...] History of section x 2 in [facility](Confirmed) Active Lao speaking patient(Confirmed) Active Social History Social History Type Response Smoking Status Never smoker entered on: 08/25/16 Sex
--- OUTSIDE RECORDS SUMMARY | 2023-09-11 20:18 | XMS_ITS | Continuity of Care Document ---
Author Organization [facility] Address [address] [place] [address]- Care Team Providers Care Multigrapher Name Role Phone Glen LU, Simin Caraballo Primary Care Physician Encounter [facility] Date(s): 06/26/20 - 07/26/20 [facility]/[address] [address]- Attending Physician: AdmRay wyatt Admitting Physician: Admtr, [id number] Referring Physician: Admtr, [...] Stop, 03/18/18 10:53:56 EST, Tablet,please label in croatian Start Date: 03/18/18 Status: Ordered ibuprofen 600 mg oral tablet 600 mg, 1, tablet, By Mouth, Every 6 hours, # 60 tablet, Refills 0, Tot. Refills 0, Maintenance, 12/23/17 17:53:29 EST, Print Requisition, please print rx in croatian Start Date: 12/23/17 Status: Ordered Multivitamins with Folic Acid 1 mg oral tablet 1 tablet, By Mouth, Daily, # 30 tablet, 11 Refills, Maintenance, 05/12/17 16:29:17 EDT, Tablet, 1 tablet By Mouth Daily Start Date: 05/12/17 Status: Ordered Multivitamins with Vitamin B Complex, Vitamin C, Minerals and L- Methylfolate oral capsule 1 capsule, By Mouth, Daily, SIG MAURITANIAN, # 30 capsule, 3 Refills, Maintenance, 12/03/17 13:14:17 EDT, Capsule, 1 capsule By Mouth Daily,Instr:SIG MAURITANIAN Start Date: 12/03/17 Status: Ordered Zoloft 50 [...] Active History of section x 2 in [facility](Confirmed) Active Turkmen speaking patient(Confirmed) Active Social History Social History Type Response Smoking Status Never smoker entered on: 08/25/16 Sex
--- OUTSIDE RECORDS SUMMARY | 2023-09-11 20:18 | XMS_ITS | Continuity of Care Document ---
Author Organization [facility] Address [address] [place] [address]- Care Team Providers Care Enrolled Nurse Name Role Phone Josette KYLE, Sophie Primary Care Physician [phone] Encounter [facility] Date(s): 06/08/22 - 07/08/22 [facility]/[place] [address]- [place] Allergies, Adverse Reactions, Alerts No Known [...] application, Topically, 2 times a day, in mauritian please continue for at least two weeks after the rash resolves, # 60 Gm, 2 Refills, Maintenance, 05/22/22 15:38:00 EDT, Cream, [facility], Partial fill upon patient request if t... Start Date: 05/22/22 Status: Ordered fluconazole 150 mg oral tablet 1 tablet = 150 mg, By Mouth, Once, For vaginal discharge and itching May repeat in 72 hrs if symptoms not resolved Malay, # 2 tablet, 0 Refills, Soft Stop, 09/11/21 16:06:00 EDT, Tablet, [facility], Partial fill upon patient r... Start Date: 09/11/21 Status: Ordered fluconazole 150 mg oral tablet 1 tablet = 150 mg, By Mouth, Once, # 1 tablet, 0 Refills, Soft Stop, 03/18/18 10:53:56 EST, Tablet,please label in mauritian Start Date: 03/18/18 Status: Ordered ibuprofen 600 mg oral tablet 600 mg, 1, tablet, By Mouth, 3 times a day, PRN, with food, # 30 tablet, Refills 0, Tot. Refills 0,Maintenance, back pain, 06/04/22 17:05:00 EDT, Route to Pharmacy Electronically, [facility], please print rx in mauritian, 150, cm, 0... Start Date: 06/04/22 Status: Ordered Multivitamins with Folic Acid 1 mg oral tablet 1 tablet, By Mouth, Daily, # 30 tablet, 11 Refills, Maintenance, 05/12/17 16:29:17 EDT, Tablet, 1 tablet By Mouth Daily Start Date: 05/12/17 Status: Ordered Multivitamins with Vitamin B Complex, Vitamin C, Minerals and L- Methylfolate oral capsule 1 capsule, By Mouth, Daily, SIG AUSTRALIAN, # 30 capsule, 3 Refills, Maintenance, 12/03/17 13:14:17 EDT, Capsule, 1 capsule By Mouth Daily,Instr:SIG AUSTRALIAN Start Date: 12/03/17 Status: Ordered Zoloft 50 [...] Active [facility] Confirmed Active Malay speaking patient Confirmed Active Social History Social History Type Response Smoking Status Never (less than 100 in lifetime); Tobacco user in household: No entered on: 4/27/23 Sex Patient Care team information Care Team Personnel Name: Sophie Finch NP Position: [facility] PCO Associate Professional Member Role: PCP Address: Address: [address] [place] [address]- Care Team Related Persons Name: CÉSAR RUGGIERO Address: Address: [address] Name: KIRILL DALEY Address: home [address] [place] [address] Name: ANTHONY DALEY Address: home [facility] [place] [address] Name: CRISTOPHER DALEY Address: home [address] [place] [address]
[2023-09-11 20:26] VITALS: BP 113/59; PULSE 67; RESP 16; TEMP 36.7; O2SAT 99
[2023-09-11 21:56] LABS: Urine Pregnancy NEGATIVE (NEGATIVE)
[2023-09-11 21:57] LABS: UPreg QC Valid YES
[2023-09-11] MEDS: 0.9 % Sodium Chloride 1,000 ML 999 ML IV (21:59)
[2023-09-11] MEDS: Ketorolac Tromethamine 15 MG/ML VIAL IVPUSH (21:59)
[2023-09-11] MEDS: iohexoL 350 MG/ML 100 ML INFUS..BTL 85 ML IV (22:15)
[2023-09-11 22:49] LABS: C Reactive Protein 0.55 mg/dL (< or = 0.50)
[2023-09-12 00:15] VITALS: BP 104/60; PULSE 65; RESP 16; TEMP 36.4; O2SAT 99
[2023-09-12] MEDS: cefuroxime axetiL 500 MG TABLET PO (00:34)
[2023-09-12 00:39] VITALS: BP 104/60; PULSE 65; RESP 16; TEMP 36.4; O2SAT 99
== END 2023-09-12 00:40 | disposition home or self-care (01) ==
PROVIDERS: Physician Assistant Medical; Emergency Provider Emergency Medicine
DX: N39.0 Urinary tract infection, site not specified (principal); N88.8 Other specified noninflammatory disorders of cervix uteri; N93.9 Abnormal uterine and vaginal bleeding, unspecified; R10.32 Left lower quadrant pain; R10.2 Pelvic and perineal pain
CPT/HCPCS: 36415; 74177; 80053; 81001; 81025; 83735; 85025; 86140; 87086; 96361; 96374; 99284; 99285; J1885; Q9967